=== PATIENT | female | born 1965 | race Caucasian/White ===

== ENCOUNTER 2021-11-22 10:35 | Day surgery (SDC) | payer OTHER ==
[~2021-11-22 10:35] MED LIST: META800 PO; NAPR500 PO
== END 2021-11-22 11:40 | disposition home or self-care (01) ==
LOC: ATC 10:35
DX: C18.7 Malignant neoplasm of sigmoid colon (principal); C78.7 Secondary malignant neoplasm of liver and intrahepatic bile duct; I10 Essential (primary) hypertension; K21.9 Gastro-esophageal reflux disease without esophagitis; E78.5 Hyperlipidemia, unspecified; E66.9 Obesity, unspecified; Z68.36 Body mass index [BMI] 36.0-36.9, adult; Z87.891 Personal history of nicotine dependence
CPT/HCPCS: 96523; J1642

== ENCOUNTER 2021-12-06 09:45 | Day surgery (SDC) | payer OTHER | END 2021-12-06 16:25 | disposition home or self-care (01) | LOC: ATC 09:45 | DX: C18.7 Malignant neoplasm of sigmoid colon (principal); C78.7 Secondary malignant neoplasm of liver and intrahepatic bile duct; E66.9 Obesity, unspecified; E78.5 Hyperlipidemia, unspecified; I10 Essential (primary) hypertension; K21.9 Gastro-esophageal reflux disease without esophagitis; K29.70 Gastritis, unspecified, without bleeding; Z87.891 Personal history of nicotine dependence | CPT/HCPCS: 96523; J1642 ==

== ENCOUNTER 2021-12-20 13:36 | Day surgery (SDC) | payer OTHER | END 2021-12-20 16:25 | disposition home or self-care (01) | LOC: ATC 13:36 | DX: C18.7 Malignant neoplasm of sigmoid colon (principal); I10 Essential (primary) hypertension; E78.5 Hyperlipidemia, unspecified; K21.9 Gastro-esophageal reflux disease without esophagitis; Z79.899 Other long term (current) drug therapy | CPT/HCPCS: 99211; J1642 ==

== ENCOUNTER 2022-01-05 14:37 | Day surgery (SDC) | payer OTHER | END 2022-01-05 15:10 | disposition home or self-care (01) | LOC: ATC 14:37 | DX: C18.7 Malignant neoplasm of sigmoid colon (principal); C78.7 Secondary malignant neoplasm of liver and intrahepatic bile duct; E66.9 Obesity, unspecified; I10 Essential (primary) hypertension; Z87.891 Personal history of nicotine dependence | CPT/HCPCS: 36591; J1642 ==

== ENCOUNTER 2022-01-19 01:04 | Day surgery (SDC) | payer OTHER | END 2022-01-19 14:30 | disposition home or self-care (01) | LOC: ATC 01:04 | DX: C18.7 Malignant neoplasm of sigmoid colon (principal); I10 Essential (primary) hypertension; E78.5 Hyperlipidemia, unspecified; K21.9 Gastro-esophageal reflux disease without esophagitis; Z79.899 Other long term (current) drug therapy | CPT/HCPCS: J1642 ==

== ENCOUNTER 2022-02-02 13:43 | Day surgery (SDC) | payer OTHER ==
[2022-02-02] MEDS ORDERED: DILTIAZEM 24HR240 M5 PO (16:33)
[2022-02-02] MEDS ORDERED: PRAVASTATIN SOD20 MG PO (16:34)
[2022-02-02] MEDS ORDERED: VENLAFAXINE HC150 MG PO (16:35)
[2022-02-02] MEDS ORDERED: DILTIAZEM 24HR180 M5 PO (16:35)
== END 2022-02-02 14:30 | disposition home or self-care (01) ==
LOC: ATC 13:43
DX: Z45.2 Encounter for adjustment and management of vascular access device (principal); C18.7 Malignant neoplasm of sigmoid colon; C78.7 Secondary malignant neoplasm of liver and intrahepatic bile duct; I10 Essential (primary) hypertension; E78.5 Hyperlipidemia, unspecified; E66.9 Obesity, unspecified; Z68.35 Body mass index [BMI] 35.0-35.9, adult; Z87.891 Personal history of nicotine dependence
CPT/HCPCS: 96523; J1642

== ENCOUNTER 2022-02-16 00:13 | Day surgery (SDC) | payer OTHER ==
[~2022-02-16 00:13] MED LIST changes: +DILTIAZEM 24HR180 M5 PO; +DILTIAZEM 24HR240 M5 PO; +PRAVASTATIN SOD20 MG PO; +VENLAFAXINE HC150 MG PO
== END 2022-02-16 12:57 | disposition home or self-care (01) ==
LOC: ATC 00:13
DX: Z45.1 Encounter for adjustment and management of infusion pump (principal); C18.7 Malignant neoplasm of sigmoid colon; C78.7 Secondary malignant neoplasm of liver and intrahepatic bile duct; Z87.891 Personal history of nicotine dependence
CPT/HCPCS: J1642

== ENCOUNTER 2022-07-06 00:53 | Day surgery (SDC) | payer OTHER | END 2022-07-06 13:46 | disposition home or self-care (01) | LOC: ATC 00:53 | DX: C18.7 Malignant neoplasm of sigmoid colon (principal); C78.7 Secondary malignant neoplasm of liver and intrahepatic bile duct; I10 Essential (primary) hypertension; E78.5 Hyperlipidemia, unspecified; E66.9 Obesity, unspecified; Z68.35 Body mass index [BMI] 35.0-35.9, adult; Z79.899 Other long term (current) drug therapy | CPT/HCPCS: 96523; J1642 ==

== ENCOUNTER → 2022-08-06 | Outpatient (CLI) | payer OTHER ==
[2022-08-06 20:50] LABS: Alanine Aminotransfer (ALT/SGP 30 U/L (12-78); Albumin, Blood 3.9 g/dL (3.4-5.0); Albumin/Globulin Ratio 1.2 (0.8-1.8); Alk Phos 90 U/L (50-136); Anion Gap 6 mmol/L (6-16); Aspartate Aminotrans (AST/SGOT 26 U/L (12-37); Bilirubin, Total 0.2 mg/dL (0.1-1.0); Blood Urea Nitrogen 13 mg/dL (8-24); Bun/Creatinine Ratio 14.4 (12.0-20.0); CHOL/HDL RATIO 3.5; CO2, Blood 28 mmol/L (21-32); Calcium, Blood 9.2 mg/dL (8.5-10.1); Chloride, Blood 107 mmol/L (98-108); Cholesterol 205 mg/dL (50-200); Globulin, Blood 3.2 g/dL (2.2-4.0); Glomerular Filtration Rate 75 (60-); Glucose, Blood 94 mg/dL (70-99); HDL Cholesterol 59 mg/dL (>39); LDL/HDL RATIO 1.6; Low Density Lipoprotein Chol 95 mg/dL (0-110); Potassium, Blood 4.2 mmol/L (3.5-5.5); Sodium, Blood 141 mmol/L (136-145); Total Protein, Blood 7.1 g/dL (6.4-8.2); Triglycerides 253 mg/dL (30-160); Very Low Density Lipoprot Chol 50 mg/dL (6-32)
== END | disposition home or self-care (01) ==
LOC: LAB SHORT 16:45 → LAB 16:45
PROVIDERS: Hospitalist
DX: E78.5 Hyperlipidemia, unspecified (principal); G62.9 Polyneuropathy, unspecified
CPT/HCPCS: 80053; 80061; 82607; 83036

== ENCOUNTER 2022-09-07 00:08 | Day surgery (SDC) | payer OTHER ==
[2022-09-07 11:47] VITALS: BP 141/86
== END 2022-09-07 11:57 | disposition home or self-care (01) ==
LOC: ATC 00:08
DX: Z45.2 Encounter for adjustment and management of vascular access device (principal); C18.7 Malignant neoplasm of sigmoid colon; C78.7 Secondary malignant neoplasm of liver and intrahepatic bile duct
CPT/HCPCS: J1642

== ENCOUNTER 2022-10-19 06:04 | Day surgery (SDC) | payer OTHER ==
[2022-10-19 07:49] VITALS: BP 154/72
== END 2022-10-19 07:56 | disposition home or self-care (01) ==
LOC: ATC 06:04
DX: C18.7 Malignant neoplasm of sigmoid colon (principal); C78.7 Secondary malignant neoplasm of liver and intrahepatic bile duct; I10 Essential (primary) hypertension; E78.5 Hyperlipidemia, unspecified; K21.9 Gastro-esophageal reflux disease without esophagitis; Z87.891 Personal history of nicotine dependence; Z79.899 Other long term (current) drug therapy
CPT/HCPCS: J1642

== ENCOUNTER 2022-11-27 09:55 | Day surgery (SDC) | payer OTHER ==
[~2022-11-27] VITALS: Ht 167.6 cm; Wt 111.7 kg
[2022-11-27] MEDS ORDERED: NEURONTIN300 MG PO (10:35)
[2022-11-27] MEDS ORDERED: LOSA50 PO (10:36)
--- NOTE | 2022-11-27 10:48 | NUR ---
11/27/22 Suzie Kaur PATIENT HAS POISON OAK TO OPERATIVE ARM, A FEW SMALL SPOTS MOSTLY ON THE UPPER ARM, WILL CONSULT DR NEWTON.
[2022-11-27 12:23] VITALS: BP 146/96
--- NOTE | 2022-11-27 12:30 | NUR ---
11/27/22 1230 Lisa Ta PT DENIED PAIN, NAUSEA, OR SHORTNESS OF BREATH. VSS. ABLE TO TOLERATE EATING AND DRINKING WITH NO ISSUES.
== END 2022-11-27 12:58 | disposition home or self-care (01) ==
LOC: ORSCSDS 09:55
PROVIDERS: Orthopaedic Surgery
PROC: 01N54ZZ Release Median Nerve, Percutaneous Endoscopic Approach (ICD-10-PCS; principal; 2022-11-27 11:30)
DX: G56.01 Carpal tunnel syndrome, right upper limb (principal); F41.9 Anxiety disorder, unspecified; K21.9 Gastro-esophageal reflux disease without esophagitis; I10 Essential (primary) hypertension; Z87.891 Personal history of nicotine dependence; Z79.899 Other long term (current) drug therapy
CPT/HCPCS: J2250; J7120

== ENCOUNTER 2023-01-19 08:43 | Day surgery (SDC) | payer OTHER ==
[~2023-01-19 08:43] MED LIST changes: +LOSA50 PO; +NEURONTIN300 MG PO
[2023-01-19 09:08] VITALS: BP 145/92
== END 2023-01-19 09:05 | disposition home or self-care (01) ==
LOC: ATC 08:43
DX: Z45.2 Encounter for adjustment and management of vascular access device (principal); C18.7 Malignant neoplasm of sigmoid colon; I10 Essential (primary) hypertension; E78.5 Hyperlipidemia, unspecified; K21.9 Gastro-esophageal reflux disease without esophagitis; Z79.899 Other long term (current) drug therapy
CPT/HCPCS: 96523; J1642

== ENCOUNTER 2023-03-11 11:55 | Day surgery (SDC) | payer OTHER ==
[~2023-03-11] VITALS: Ht 167.6 cm; Wt 113.0 kg
[~2023-03-11 11:55] MED LIST changes: +GABA600 PO
[2023-03-11] MEDS ORDERED: LOSA50 PO (13:10)
--- NOTE | 2023-03-11 14:19 | NUR ---
03/11/23 1419 Mary Stahl TIMEOUT WITH DR NEWTON PERFORMED AT BEDSIDE AT 1401. DR NEWTON PERFORMED BLOCK FOR L CARPAL TUNNEL RELEASE WITH 10ML 2% LIDOCAINE WITH EPI 1:100,000. PATIENT TOLERATED PROCEDURE WELL.
[2023-03-11 15:02] VITALS: BP 139/86
--- NOTE | 2023-03-11 15:03 | NUR ---
03/11/23 1503 MEHRDAD SANTO IV REMOVED. CANNULA INTACT. WNL. WOL WELL.
== END 2023-03-11 15:29 | disposition home or self-care (01) ==
LOC: ORSCSDS 11:55
PROVIDERS: Orthopaedic Surgery
PROC: 01N54ZZ Release Median Nerve, Percutaneous Endoscopic Approach (ICD-10-PCS; principal; 2023-03-11 14:50)
DX: G56.03 Carpal tunnel syndrome, bilateral upper limbs (principal); F41.9 Anxiety disorder, unspecified; I10 Essential (primary) hypertension; K21.9 Gastro-esophageal reflux disease without esophagitis; Z87.891 Personal history of nicotine dependence; Z79.899 Other long term (current) drug therapy
CPT/HCPCS: J2250; J7120

== ENCOUNTER 2023-04-26 04:32 | Day surgery (SDC) | payer OTHER ==
[2023-04-26 10:53] VITALS: BP 170/90
== END 2023-04-26 10:53 | disposition home or self-care (01) ==
LOC: ATC 04:32
DX: Z45.2 Encounter for adjustment and management of vascular access device (principal); C18.7 Malignant neoplasm of sigmoid colon; C78.7 Secondary malignant neoplasm of liver and intrahepatic bile duct; I10 Essential (primary) hypertension; E78.5 Hyperlipidemia, unspecified; K21.9 Gastro-esophageal reflux disease without esophagitis; E66.9 Obesity, unspecified; Z68.41 Body mass index [BMI] 40.0-44.9, adult; Z79.899 Other long term (current) drug therapy
CPT/HCPCS: 96523; J1642

== ENCOUNTER 2023-10-25 05:12 | Day surgery (SDC) | payer OTHER ==
[~2023-10-25 05:12] MED LIST changes: +COMPAZINE10 MG PO; +EMREAL 2.5%-2.1 EACH TOP; +Ondansetron Odt8 MG MM
[2023-10-25 14:40] VITALS: BP 125/68
== END 2023-10-25 14:43 | disposition home or self-care (01) ==
LOC: ATC 05:12
DX: C18.7 Malignant neoplasm of sigmoid colon (principal); C78.7 Secondary malignant neoplasm of liver and intrahepatic bile duct; G62.9 Polyneuropathy, unspecified
CPT/HCPCS: 96523; J1642

== ENCOUNTER 2024-02-14 01:12 | Day surgery (SDC) | payer OTHER ==
[2024-02-14 09:10] VITALS: BP 165/100
== END 2024-02-14 09:19 | disposition home or self-care (01) ==
LOC: ATC 01:12
DX: Z45.2 Encounter for adjustment and management of vascular access device (principal); C18.7 Malignant neoplasm of sigmoid colon; C78.7 Secondary malignant neoplasm of liver and intrahepatic bile duct; G62.9 Polyneuropathy, unspecified; Z87.891 Personal history of nicotine dependence; Z79.899 Other long term (current) drug therapy; Z88.8 Allergy status to other drugs, medicaments and biological substances
CPT/HCPCS: 96523; J1642

== ENCOUNTER → 2024-05-11 | Outpatient (CLI) | payer OTHER ==
[2024-05-15 04:41] LABS: VARICELLA-ZOSTER VIRUS BY PCR Not Detected; VARICELLA-ZOSTER VIRUS SOURCE R HAND SWAB
== END ==
LOC: LAB SHORT 18:13 → LAB 18:13
PROVIDERS: Hospitalist
DX: L30.9 Dermatitis, unspecified (principal)
CPT/HCPCS: 87798

== ENCOUNTER → 2025-01-24 | Outpatient (CLI) | payer OTHER ==
[2025-01-24 11:11] LABS: Alanine Aminotransfer (ALT/SGP 31.0 U/L (12-78); Albumin, Blood 3.5 g/dL (3.4-5.0); Albumin/Globulin Ratio 1.0 (0.8-1.8); Anion Gap 6.0 mmol/L (3-11); Aspartate Aminotrans (AST/SGOT 19.0 U/L (12-37); Bilirubin, Total 0.2 mg/dL (0.1-1.0); Blood Urea Nitrogen 11.0 mg/dL (8-24); CO2, Blood 32.0 mmol/L (21-32); Calcium, Blood 9.1 mg/dL (8.5-10.1); Chloride, Blood 103.0 mmol/L (98-108); Creatinine, Blood 0.79 mg/dL (0.40-1.00); Globulin, Blood 3.6 g/dL (2.2-4.0); Glucose, Blood 132.0 mg/dL (70-99); Potassium, Blood 3.9 mmol/L (3.5-5.5); Sodium, Blood 137.0 mmol/L (136-145); Total Protein, Blood 7.1 g/dL (6.4-8.2)
== END ==
LOC: LAB 10:43 → LAB SHORT 10:43
PROVIDERS: Internal Medicine Hematology & Oncology
DX: C18.7 Malignant neoplasm of sigmoid colon (principal)
CPT/HCPCS: 80053